=== PATIENT | male | born 1995 | race Caucasian/White ===

== ENCOUNTER 2018-06-09 12:03 | Day surgery (SDC) | payer OTHER ==
[~2018-06-09] VITALS: Ht 193 cm; Wt 99.7 kg
[~2018-06-09 12:03] MED LIST: ACETAMINOPHEN 500 MG TABLET PO ONE; BUPIVACAINE/PF-EPI 0.5% 1:200K ONE; GABAPENTIN 300 MG CAPSULE PO ONE; LIDOCAINE 1%-EPI 1:100K, 30ML ONE; PROPOFOL 50 ML ONE; SCOPOLAMINE PATCH, 1.5MG PATCH.TD72 TD ONE; cloniDINE/PF 100 MCG/ML, 10 ML ONE
[2018-06-09 13:00] VITALS: BP 112/72
[2018-06-09] MEDS ORDERED: LACTATED RINGERS 1,000 ML IV SCH (13:44)
[2018-06-09] MEDS ORDERED: MIDAZOLAM 1 MG/ML, 2ML ONE (14:10)
[2018-06-09] MEDS ORDERED: FENTANYL PF 100 MCG/2ML ONE (14:10)
[2018-06-09] MEDS ORDERED: SUCCINYLCHOLINE 20 MG/ML, 10ML ONE (14:58)
[2018-06-09] MEDS ORDERED: DEXAMETHASONE 4 MG/ML, 5ML ONE (14:58)
[2018-06-09] MEDS ORDERED: ROCURONIUM 10 MG/ML,10ML ONE (14:58)
[2018-06-09] MEDS ORDERED: ONDANSETRON 2MG/ML, 2ML IV PRN (15:30)
[2018-06-09] MEDS ORDERED: FENTANYL PF 100 MCG/2ML IV PRN (15:30)
[2018-06-09] MEDS ORDERED: PROMETHAZINE 25 MG/ML, 1ML IV PRN (15:30)
[2018-06-09] MEDS ORDERED: MEPERIDINE/PF 25MG/0.5ML IVPush PRN (15:30)
[2018-06-09] MEDS ORDERED: MIDAZOLAM 1 MG/ML, 2ML IV PRN (15:30)
[2018-06-09] MEDS ORDERED: OXYcodone 5 MG/5 ML ORAL.SOL UDC PO PRN (15:30)
[2018-06-09] MEDS ORDERED: HYDROmorphone 2 MG/ML, 1ML IVPush PRN (15:30)
[2018-06-09] MEDS ORDERED: ALBUTEROL/IPRATROPIUM 2.5MG/0.5MG, 3 ML NPPB PRN (15:30)
[2018-06-09] MEDS ORDERED: BUPIVACAINE/PF 0.5% ONE (15:56)
[2018-06-09] MEDS ORDERED: PROPOFOL 10 MG/ML, 20ML ONE (15:59)
[2018-06-09] MEDS ORDERED: CEFAZOLIN 1,000 MG ONE (15:59)
[2018-06-09] MEDS ORDERED: ONDANSETRON 2MG/ML, 2ML ONE (15:59)
== END 2018-06-09 18:10 | disposition home or self-care (01) ==
LOC: OUT 12:03
PROVIDERS: ATTEND Orthopaedic Surgery
DX: M75.111 Incomplete rotator cuff tear or rupture of right shoulder, not specified as traumatic (principal); M65.811 Other synovitis and tenosynovitis, right shoulder; M24.111 Other articular cartilage disorders, right shoulder; Z88.0 Allergy status to penicillin
CPT/HCPCS: 29806; 29823; 64415; C1713; J0330; J0690; J0735; J1100; J2250; J2405; J2704; J3010; J3490; J7120

== ENCOUNTER 2018-09-29 21:11 | Emergency (ER) | payer OTHER ==
[~2018-09-29] VITALS: Ht 190.5 cm; Wt 105.6 kg
[2018-09-29 21:13] VITALS: BP 115/73
[2018-09-29] MEDS ORDERED: ALBUTEROL/IPRATROPIUM 2.5MG/0.5MG, 3 ML ONE (21:45)
[2018-09-29] MEDS ORDERED: ALBUTEROL/IPRATROPIUM 2.5MG/0.5MG, 3 ML NPPB ONE (22:00)
--- NOTE | 2018-09-29 22:05 | NUR ---
[facility] REPORT TO OSEAS FLORES
--- NOTE | 2018-09-29 22:12 | NUR ---
PT REPORTS IMPROVEMENT IN S/S WITH BREATHING TX AND MEDICATIONS. DC EDUCATION PROVIDED, PT DEMONSTRATES UNDERSTANDING. PT AMBULATED STEADILY TO DC WITH RN AND FRIEND.
== END 2018-09-29 22:15 | disposition home or self-care (01) ==
LOC: ED 22:00
DX: J45.21 Mild intermittent asthma with (acute) exacerbation (principal)
CPT/HCPCS: 93005; 94640; 99283; J7512; J7620

== ENCOUNTER 2018-10-06 14:52 | Emergency (ER) | payer OTHER ==
[~2018-10-06] VITALS: Ht 193 cm; Wt 104.0 kg
--- NOTE | 2018-10-06 16:24 | NUR ---
PT TO ROOM FROM LOBBY
[2018-10-06] MEDS ORDERED: DIAZEPAM 5 MG TABLET ONE (16:54)
[2018-10-06] MEDS ORDERED: KETOROLAC 30 MG/1 ML ONE (16:54)
[2018-10-06] MEDS ORDERED: HYDROcodone/APAP 5/325 TABLET ONE (16:54)
[2018-10-06] MEDS ORDERED: DIAZEPAM 5 MG TABLET PO ONE (17:00)
[2018-10-06] MEDS ORDERED: HYDROcodone/APAP 5/325 TABLET PO ONE (17:00)
[2018-10-06] MEDS ORDERED: KETOROLAC 30 MG/1 ML IM ONE (17:00)
--- NOTE | 2018-10-06 17:04 | NUR ---
pt medicated for pain, warm blanket applied to neck, call light in place, fall risk since med given, educated pt on safety, call prn.
--- NOTE | 2018-10-06 17:16 | NUR ---
pt to ct
[2018-10-06 18:11] VITALS: BP 116/56
== END 2018-10-06 18:16 | disposition home or self-care (01) ==
LOC: ED 18:14
DX: S16.1XXA Strain of muscle, fascia and tendon at neck level, initial encounter (principal); M62.838 Other muscle spasm; X58.XXXA Exposure to other specified factors, initial encounter; Y93.89 Activity, other specified; Y92.89 Other specified places as the place of occurrence of the external cause; Y99.8 Other external cause status
CPT/HCPCS: 72125; 96372; 99284; J1885

== ENCOUNTER → 2019-06-28 | Outpatient (CLI) | payer OTHER ==
[2019-06-28 13:20] LABS: ALANINE AMINOTRANSFERASE 29 U/L (12-78); ALBUMIN 3.7 g/dL (3.4-5.0); ANION GAP 7 mmol/L (5-15); C-REACTIVE PROTEIN, QUANT 0.12 mg/dL (0.02-0.49); CALCIUM 8.7 mg/dL (8.5-10.1); CHLORIDE 107 mmol/L (98-107); CREATININE 1.08 mg/dL (0.7-1.3)
[2019-06-28 13:24] LABS: BASOPHILS # (AUTO) 0.02 x10^3/uL (0-0.1); BASOPHILS % (AUTO) 0 % (0-1); EOSINOPHILS # (AUTO) 0.47 x10^3/uL (0-0.4); EOSINOPHILS % (AUTO) 7 % (1-7); LYMPHOCYTES # (AUTO) 2.24 x10^3/uL (1-3.4); LYMPHOCYTES % (AUTO) 34 % (22-44); MD NO; MEAN CORPUSCULAR HEMOGLOBIN 30.7 pg (27.5-34.5); MEAN CORPUSCULAR HGB CONC 33.5 g/dL (33.2-36.2); MEAN CORPUSCULAR VOLUME 91.6 fL (81-97); MEAN PLATELET VOLUME 9.2 fL (7.4-10.4); MONOCYTES # (AUTO) 0.42 x10^3/uL (0.2-0.8); MONOCYTES % (AUTO) 6 % (2-9); NEUTROPHILS # (AUTO) 3.44 x10^3/uL (1.8-6.8); NEUTROPHILS % (AUTO) 52 % (42-75); PLATELET COUNT 185 x10^3/uL (130-400); RED BLOOD COUNT 5.28 x10^6/uL (4.38-5.82); RED CELL DISTRIBUTION WIDTH 12.9 % (9.4-14.8)
[2019-06-28 13:46] LABS: ALKALINE PHOSPHATASE 92 U/L (45-117); BILIRUBIN,TOTAL 0.9 mg/dL (0.2-1.0); TOTAL PROTEIN 7.5 g/dL (6.4-8.2)
[2019-06-28 14:18] LABS: HCT (SEDRATE) 48.4 % (39.2-51.8)
[2019-06-29 13:56] LABS: ANA SCREEN NEGATIVE (Negative)
== END | disposition home or self-care (01) ==
LOC: LAB 12:34
PROVIDERS: ATTEND Family Medicine
DX: I73.89 Other specified peripheral vascular diseases (principal)
CPT/HCPCS: 36415; 80053; 82607; 84443; 85025; 85651; 86038; 86140; 86235; 86256

== ENCOUNTER → 2019-08-16 | Outpatient (CLI) | payer OTHER | END | disposition home or self-care (01) | LOC: CVU 07:00 | PROVIDERS: ATTEND Family Medicine | DX: I73.89 Other specified peripheral vascular diseases (principal) | CPT/HCPCS: 93922; 93925 ==